=== PATIENT | male | born 1960 | race Caucasian/White ===

== ENCOUNTER 2024-10-17 06:22 | Emergency (ER) | payer OTHER ==
[~2024-10-17] VITALS: Wt 124.3 kg
[2024-10-17] MEDS ORDERED: MOBIC PO (07:03)
[2024-10-17] MEDS ORDERED: [UNRECOGNIZED DRUG - REMARK] (07:04)
[2024-10-17] MEDS ORDERED: fentaNYL CITRATE/PF 50 MCG/ML SYRINGE IV ONE (07:10)
[2024-10-17] MEDS ORDERED: Ondansetron Hydrochloride 4 MG/2 ML VIAL IV ONE (07:10)
== END 2024-10-17 08:27 | disposition short-term general hospital (02) ==
LOC: ED 06:22
DX: S08.0XXA Avulsion of scalp, initial encounter (principal); I10 Essential (primary) hypertension; E78.5 Hyperlipidemia, unspecified; Z88.2 Allergy status to sulfonamides; V48.5XXA Car driver injured in noncollision transport accident in traffic accident, initial encounter; Y93.I9 Activity, other involving external motion; Y92.488 Other paved roadways as the place of occurrence of the external cause; Y99.8 Other external cause status